=== PATIENT | female | born 1965 | race Caucasian/White ===

== ENCOUNTER 2016-11-23 09:14 | Inpatient (IN) ==
--- NOTE | 2016-11-20 22:27 | Discharge Summary ---
<Ev Bernstein - Last Filed: 11/20/16 22:22> Date of Encounter: 11/20/16 - Discharge Diagnosis (1) Status post total knee replacement, right Priority: Primary Status: Acute (2) Arthritis of knee, right Priority: Primary Status: Acute (3) HTN (hypertension) Priority: Secondary Status: Acute Qualifiers: Hypertension type: essential hypertension Qualified Code(s): I10 - Essential (primary) hypertension (4) Tobacco use Priority: Secondary Status: Chronic - Discharge Medications Prescriptions: Cyclobenzaprine [Flexeril] 10 mg PO TID #30 tab Gabapentin [Neurontin] 600 mg PO TID #30 Home Medications: Amlodipine Besylate 10 mg PO DAILY 10/07/16 [History] Carvedilol 12.5 mg PO BID 10/07/16 [History] Cyclobenzaprine [Flexeril] 10 mg PO HS 10/07/16 [History] Ezetimibe [Zetia] 10 mg PO DAILY 10/07/16 [History] Fenofibrate [Tricor] 54 mg PO DAILY 10/07/16 [History] Lisinopril [Zestril] 40 mg PO DAILY 10/07/16 [History] Vit C/E/Zn/Coppr/Lutein/Zeaxan [Preservision Areds 2 Softgel] 1 cap PO DAILY 10/17 [History] Aspirin Enteric Coated [Aspirin EC] 325 mg PO DAILY #21 tablet. 11/20/16 [Rx] OxyCODONE Immed Rel [Roxicodone 5 MG] 5 - 10 mg PO Q6HR PRN #40 tablet 11/20/16 [Rx] Venlafaxine HCl [Venlafaxine HCl ER] 37.5 mg PO DAILY 11/23/16 [History] Cyclobenzaprine [Flexeril] 10 mg PO TID #30 tab 11/25/16 [Rx] Gabapentin [Neurontin] 600 mg PO TID #30 11/25/16 [Rx] Allergies/Adverse Reactions: 3 Allergy/AdvReac Type Severity Reaction Status Date / Time acetaminophen [From [place]] AdvReac Dizziness Verified 11/23/16 09:39 cephalexin [From Keflex] AdvReac Itching Verified 11/18/16 08:34 ciprofloxacin [From Cipro] AdvReac Itching Verified 11/18/16 08:34 hydrocodone [From [place]] AdvReac Nausea Verified 11/18/16 08:34 Hydromorphone [From Dilaudid] AdvReac Itching Verified 11/18/16 08:34 morphine AdvReac Redness of Verified 11/18/16 08:34 Skin pregabalin [From Lyrica] AdvReac See Verified 11/23/16 09:39 Comments sulfamethoxazole AdvReac See Verified 11/23/16 09:39 [From Bactrim] Comments trimethoprim [From Bactrim] AdvReac See Verified 11/23/16 09:39 Comments Primary care physician: Eliseo Puente CNP - Patient Status Disposition: Home, Self-Care Condition: Good - Discharge Instructions Follow Up With: Eliseo Puente CNP [Primary Care Provider] - - Hospital Course Hospital course: Ms. You is a 51 year old female - Time Spent with Patient Total time spent providing and/or coordinating discharge services: <Jose Izaguirre - Last Filed: 11/25/16 06:24> Date of Encounter: 11/25/16 Time of Encounter: 06:20 - Discharge Diagnosis (1) Status post total knee replacement, right Priority: Primary Status: Acute (2) Arthritis of knee, right Priority: Primary Status: Chronic (3) HTN (hypertension) Priority: Secondary Status: Chronic Qualifiers: Hypertension type: essential hypertension Qualified Code(s): I10 - Essential (primary) hypertension (4) Tobacco use Priority: Secondary Status: Chronic (5) Acute blood loss anemia Priority: Primary Status: Acute Primary care physician: Eliseo Puente CNP - Patient Status Functional capacity at discharge: uses cane/walker Overall status at discharge: patient is progressing back to baseline - Hospital Course Hospital course: Ms. You is a 51 year old female Status post right total knee replacement. Patient with acute blood loss anemia postoperative hematocrit 25 transfused 2 units before discharge. The patient had an uneventful postoperative course. They received antibiotics and physical therapy and were discharged in stable condition. There will follow -up in the office in 2 weeks. - Time Spent with Patient Total time spent providing and/or coordinating discharge services:
[2016-11-23] MEDS ORDERED: Albuterol 2.5 MG/3 ML NEBULIZER IH ONE ×2 (09:35→11:05)
[2016-11-23] MEDS ORDERED: CeFAZolin Pre 2,000 MG/100 ML 2,000 MG/100 ML BAG IVPB ONE (09:35)
[2016-11-23] MEDS ORDERED: Lidocaine -MPF 1% 2 ML VIAL ID ONE (09:35)
--- NOTE | 2016-11-23 09:40 | Anesthesia Evaluation PreOp ---
Date of Encounter: 11/23/16 Time of Encounter: 09:38 - Past History Planned Operation: Right total knee arthroplasty Cardiac History: HTN Pulmonary History: Smoker QUANTITATIVE EQUITY HEAD History: Other (chronic back pain; spinal stenosis - some right lateral foot numbness that persists) Other Medical History: Diabetes Type II (gestational diabetes) Anesthesia History: No Prior Anesthetic Complications Alcohol Use: none Drug use: none Medications and Allergies Amlodipine Besylate 10 mg PO DAILY 10/07/16 [History] Carvedilol 12.5 mg PO BID 10/07/16 [History] Cyclobenzaprine [Flexeril] 10 mg PO HS 10/07/16 [History] Ezetimibe [Zetia] 10 mg PO DAILY 10/07/16 [History] Fenofibrate [Tricor] 54 mg PO DAILY 10/07/16 [History] Lisinopril [Zestril] 40 mg PO DAILY 10/07/16 [History] Vit C/E/Zn/Coppr/Lutein/Zeaxan [Preservision Areds 2 Softgel] 1 cap PO DAILY 10/17 [History] Aspirin Enteric Coated [Aspirin EC] 325 mg PO DAILY #21 tablet. 11/20/16 [Rx] OxyCODONE Immed Rel [Roxicodone 5 MG] 5 - 10 mg PO Q6HR PRN #40 tablet 11/20/16 [Rx] Gabapentin [Neurontin] 300 mg PO BID 11/23/16 [History] 3 Allergy/AdvReac Type Severity Reaction Status Date / Time acetaminophen [From [facility]] AdvReac Dizziness Verified 11/23/16 09:39 cephalexin [From Keflex] AdvReac Itching Verified 11/18/16 08:34 ciprofloxacin [From Cipro] AdvReac Itching Verified 11/18/16 08:34 hydrocodone [From [facility]] AdvReac Nausea Verified 11/18/16 08:34 Hydromorphone [From Dilaudid] AdvReac Itching Verified 11/18/16 08:34 morphine AdvReac Redness of Verified 11/18/16 08:34 Skin pregabalin [From Lyrica] AdvReac See Verified 11/23/16 09:39 Comments sulfamethoxazole AdvReac See Verified 11/23/16 09:39 [From Bactrim] Comments trimethoprim [From Bactrim] AdvReac See Verified 11/23/16 09:39 Comments - Meds/Allergy Pre-op Review Medications Reviewed: Yes Allergies Reviewed: Yes Beta Blockers on Current Med List: Yes (coreg) Anesthesia Results - Labs Laboratory Tests 11/18/16 11/18/16 11/18/16 08:46 08:46 08:46 WBC 4.5 Hgb 13.2 Hct 40.5 Plt Count 248 PT 10.4 INR 1.0 APTT 31.6 Sodium 137 Potassium 4.0 Chloride 104 Carbon Dioxide 27 BUN 17 Creatinine 0.80 Est GFR ( Amer) > 60 Est GFR (Non-Af Amer) > 60 BUN/Creatinine Ratio 21 - Imaging EKG: report reviewed, image reviewed (SINUS RHYTHM INCOMPLETE RIGHT BUNDLE BRANCH BLOCK) Anesthesia Exam Last Vital Signs Temp 98.1 F 11/23/16 09:36 Pulse 74 11/23/16 09:36 Resp 18 11/23/16 09:36 BP 136/81 11/23/16 09:36 Pulse Ox 96 11/23/16 09:36 - HEENT Pupil (Motor): Pupils equal, EOMI Mallampati: II Teeth: Missing Denture Type: Upper: Complete Oral Opening: Greater than 3 - QUANTITATIVE EQUITY HEAD LOC: Oriented - Cardiac Rhythm: Regular Murmur: None - Pulmonary Breath Sounds: bilateral Clear Respiratory Effort: Symmetrical Anesthesia Assess/Plan ASA Score: 3 Modified Pete Scale for Level of Consciousness: Cooperative, oriented, and tranquil Anesthetic Plan: General, Regional Monitoring Plan: Standard Monitors Recovery Plan: PACU
[2016-11-23] MEDS ORDERED: Plasma-Lyte A (PH 7.4) 1,000 ML IVC SCH ×2 (09:45→11:15)
--- NOTE | 2016-11-23 09:45 | History & Physical Report ---
Date of Encounter: 11/23/16 Time of Encounter: 09:44 24 Hour HP Update - Instructions Instructions: If the History and Physical is less than 30 days old and was completed prior to A.M. admission and or procedure and has NOT been updated on calendar day of procedure please complete this update prior to performing procedure. - Update Patient reports changes in Medical Condition: No Changes in examination, assessment, or condition: No Changes in Medication: No Preop tests/diagnostics Reviewed: Yes Surgery Remains Indicated: Yes Consent for Planned Operative Procedure(s) Verified: Yes - Pre-Operative Checklist Preoperative Checklist Indicated: No Prophylactic Antibiotic Ordered: Yes Is VTE Prophylaxis Indicated?: Yes
[2016-11-23] MEDS ORDERED: *HR* FentaNYL (PF) 100 MCG/2 ML VIAL ONE (10:01)
[2016-11-23] MEDS ORDERED: *HR* Midazolam HCl 2 MG/2 ML VIAL ONE (10:01)
[2016-11-23] MEDS ORDERED: *HR* Succinylcholine 200 MG/10 ML VIAL IVP ONE (10:01)
[2016-11-23] MEDS ORDERED: Lidocaine -MPF 2% 2 ML VIAL ONE (10:01)
[2016-11-23] MEDS ORDERED: *HR* Propofol 200 MG/20 ML VIAL IVP ONE (10:01)
[2016-11-23] MEDS ORDERED: Bupivacaine/Clonidine Syringe 1 EACH SYRINGE ONE (10:25)
[2016-11-23] MEDS ORDERED: *HR* Meperidine 25 MG/ML SYRINGE IVP PRN (11:05)
[2016-11-23] MEDS ORDERED: Ondansetron 4 MG/2 ML VIAL IVP ONE (11:05)
[2016-11-23] MEDS ORDERED: *HR* Labetalol 20 MG/4 ML SYRINGE IVP PRN (11:05)
[2016-11-23] MEDS ORDERED: Naloxone 0.4 MG/ML INJ IVP PRN ×2 (11:05→14:35)
[2016-11-23] MEDS ORDERED: *HR* Morphine 2 MG/ML SYRINGE IVP PRN (11:05)
--- NOTE | 2016-11-23 11:10 | Anesthesia Procedures ---
Date of Encounter: 11/23/16 Time of Encounter: 11:09 Procedures: Anesthesia - Nerve Block Procedure Date: 11/23/16 Time: 11:09 Surgical Procedure: right tka Checklist: Correct Patient Identifier, Correct procedure, History checked Correct side: Right Blood Thinner: No Monitor Applied: EKG, BP, Pulse Oximetry Supplemental Oxygen via Nasal Cannula (L/min): 2 Sedation: Versed (mg): 2 Sedation: Fentanyl (mcg): 100 Indication: Post Op Analgesia (request per dr del angel for post op pain control) Pre-op Neuro Deficits: No Block Type: Femoral, Other (ipack) Catheter placed: No Sterile Technique: Yes Ultrasound used: Yes Anatomy identified: Yes Visual spread of Local: Yes Neuro Stimulation: Yes Nerve Stimulator Range: 0.2 - 0.4 mA Blood on Needle Aspiration: No Smooth Injection of Local: Yes Pain with Injection of Local: No Prep: Chlorhexadine Needle: 22 x 50 mm Stimuplex, 21 x 100 mm Stimuplex Local: 0.25% Bupivicaine w/Clonidine 20 mcg/cc Volume (cc): 60 Number of Attempts: 1 Complications: None/effective block Vitals: Vital Signs/O2 Sat/Glucose, Most Current Temp Pulse Resp BP Pulse Ox 11/23/16 10:55 75 122/73 98 11/23/16 10:00 18 136/81 96 11/23/16 09:36 98.1 F 74 18 136/81 96 Comments: pt tolerated procedure well. no complications. vss.
[2016-11-23] MEDS ORDERED: EPHEDrine 50 MG/ML VIAL ONE (11:44)
[2016-11-23] MEDS ORDERED: Ondansetron 4 MG/2 ML VIAL ONE (11:54)
[2016-11-23] MEDS ORDERED: Dexamethasone 4 MG/ML VIAL ONE (11:54)
[2016-11-23] MEDS ORDERED: *HR* HYDROmorphone 2 MG/ML SYRINGE ONE (11:55)
--- NOTE | 2016-11-23 12:13 | Orthopedic Operative Note ---
Date of procedure: 11/23/16 Pre-op diagnosis: Right knee arthritis Post-op diagnosis: same Procedure: Procedure: Right Total knee replacement Estimated blood loss: 200 cc Hardware: Metal and polyethylene replacement. Arthrex Femur: 6 Tibia: 5 PS insert: 11 Patella: 34 Exam Under anesthesia: Full flexion and extension no instability Procedural Notes: Grade 3 arthritic changes medial compartment and patellofemoral joint. Operative procedure: The patient was brought to the operating room and placed on the operating room table. After general anesthesia was administered the operative knee was examined. Findings were noted in the exam under anesthesia. The operative extremity was prepped and draped in sterile surgical fashion. The patient received IV antibiotics prior to skin incision. A standard midline incision was made centered over the patella. The incision was made through the skin and subcutaneous tissue. A medial parapatellar tendon approach was performed. Care was taken to preserve tissue along the medial aspect of the patella. And to protect the patella tendon. The deep MCL was released off the medial tibia. The infra patella fat pad was excised. Knee was brought into flexion. Patient noted to have grade 3 arthritic changes medial compartment and patellofemoral joint. The entry hole was made for the intramedullary femoral guide. The guide was seated in 6 degrees of valgus. Anterior cut was made followed by the distal cut. The ACL the PCL the medial and the lateral menisci were excised. The tibia was subluxed forward. The entry hole was made for the intramedullary tibial guide. Guide was seated to resect 2 mm off the more abnormal side. The knee was brought into flexion the distal femur was sized to a 6. The femoral guide was seated, the anterior cut was made followed by the posterior condylar cut, followed by the chamfer cuts. The finishing guide was seated the box cut was made and the lug holes were drilled. The tibia was sized to a 5, the tibial tray was seated and prepared with the large drill followed by the fin cutter. Trial reduction revealed full extension no varus valgus instability with the appropriate 11 PS Anali. The patella was everted and cut was made at the level of the insertion of the quadriceps and patella tendon. The patella was sized 34 the guide was seated and the lug holes are drilled. Trial reduction revealed excellent patella tracking. All trial components were removed all bony surfaces were irrigated. The tibia was cemented first followed by the femur. The 11 PS Anali was seated and the knee was brought into full extension. The patella was cemented and held in place with the patellar holding clamp. After the cement had hardened, the knee sat for 2 minutes with a Betadine saline solution. The knee was then irrigated out with 2 L of pulse irrigation. The knee was closed by the PA. The extensor mechanism was closed with #2 FiberWire suture and #2 PDS suture. The subcutaneous tissue was then irrigated and closed deep with #1 PDS suture superficially with 0 PDS suture and skin was closed with skin kali. The patient was then placed in a sterile dressing and a postoperative brace extubated and transferred to recovery room in stable condition. Anesthesia: [place] Surgeon: Jose Izaguirre Barrel Header: Ev Bernstein Condition: stable Disposition: PACU
[2016-11-23] MEDS ORDERED: *HR* HYDROmorphone (PF) 1 MG/ML SYRINGE ONE ×2 (13:04→13:37)
[2016-11-23] MEDS: *HR* HYDROmorphone (PF) 1 MG/ML SYRINGE IVP PRN ×8 (13:05→14:00)
[2016-11-23] MEDS ORDERED: Acetaminophen IV 1,000 MG/100 ML INFUS..BTL IVPB ONE (13:07)
[2016-11-23] MEDS ORDERED: Ketorolac 30 MG/ML VIAL IVP ONE (13:08)
[2016-11-23] MEDS ORDERED: Ringers Solution, Lactated 1,000 ML ONE (13:20)
[2016-11-23 13:36] LABS: Hematocrit 36.7 % (35.3-44.9); Hemoglobin 12.2 g/dL (11.5-15.4)
--- NOTE | 2016-11-23 14:09 | Anesthesia Evaluation Post Op ---
Date of Encounter: 11/23/16 Time of Encounter: 14:09 - Vital Signs Vital Signs: vss - Lungs Lungs: Clear Ascult./Percussion - Airway Airway: Non-obstructed - Cardiovascular Baseline Rhythm - Mental Status Mental Status: Alert & Oriented, Answers Appropriately - Pain Pain Scale used: Cho-Leonila (Faces) (tolerable at this time.) - Nausea Vomiting Nausea Vomiting: Not Present - Hydration Hydration: Tolerates oral liquids - Discharge PostOp Status: Transfer Patient to floor
[2016-11-23] MEDS ORDERED: MOM Conc 10 ML UD.LIQ PO PRN (14:35)
[2016-11-23] MEDS ORDERED: Ondansetron 4 MG/2 ML VIAL IVP PRN (14:35)
[2016-11-23] MEDS ORDERED: Temazepam 15 MG CAPSULE PO PRN (14:35)
[2016-11-23] MEDS ORDERED: *HR* OxyCODONE Immed Rel 5 MG TABLET PO PRN (14:35)
[2016-11-23] MEDS ORDERED: Sennosides 8.6 MG TABLET PO PRN (14:35)
[2016-11-23] MEDS ORDERED: *HR* Enoxaparin 30 MG/0.3 ML SYRINGE SQ SCH (18:00)
[2016-11-23] MEDS: Ringers Solution, Lactated 1,000 ML IVC SCH (18:05)
[2016-11-23] MEDS: *HR* Enoxaparin 30 MG/0.3 ML SYRINGE SQ SCH (18:06)
[2016-11-23] MEDS: Clindamycin 900 MG/50 ML 900 MG/50 ML IV.SOLN IVPB SCH (18:06)
[2016-11-23] MEDS: Fenofibrate 54 MG TABLET PO SCH (21:25)
[2016-11-23] MEDS: Gabapentin 300 MG CAPSULE PO SCH (21:26)
[2016-11-23] MEDS: *HR* OxyCODONE Immed Rel 5 MG TABLET PO PRN (21:26)
[2016-11-24] MEDS: Clindamycin 900 MG/50 ML 900 MG/50 ML IV.SOLN IVPB SCH (00:17)
[2016-11-24] MEDS: *HR* Enoxaparin 30 MG/0.3 ML SYRINGE SQ SCH ×2 (05:20→16:54)
[2016-11-24] MEDS: *HR* OxyCODONE Immed Rel 5 MG TABLET PO PRN ×4 (05:27→21:06)
[2016-11-24] MEDS: Ringers Solution, Lactated 1,000 ML IVC SCH (05:29)
[2016-11-24 06:15] LABS: BUN/Creatinine Ratio 18 (6-26); Blood Urea Nitrogen 15 mg/dL (7-20); Calcium 8.4 mg/dL (8.6-10.8); Carbon Dioxide 27 mEq/L (19-29); Chloride 105 mEq/L (98-109); Glucose 137 mg/dL (70-99); Osmolality,Calculated 287 (280-300); Potassium 4.2 mEq/L (3.5-4.5); Sodium 137 mEq/L (136-145); eGFR For African Americans > 60 (> 60); eGFR For Non-African Americans > 60 (> 60)
[2016-11-24 06:18] LABS: Hemoglobin 9.2 g/dL (11.5-15.4)
--- NOTE | 2016-11-24 06:53 | Orthopedics Progress Note ---
Date of Encounter: 11/24/16 Time of Encounter: 06:53 - Assessment and Plan (1) Status post total knee replacement, right Current Visit: Yes Status: Acute (2) Arthritis of knee, right Current Visit: Yes Status: Chronic (3) HTN (hypertension) Current Visit: Yes Status: Chronic Qualifiers: Hypertension type: essential hypertension Qualified Code(s): I10 - Essential (primary) hypertension (4) Tobacco use Current Visit: Yes Status: Chronic (5) Acute blood loss anemia Current Visit: Yes Status: Acute Subjective Interval history: Patient was seen this morning doing well without complaints. Afebrile vital signs stable. Operative extremity: Neurovascularly intact Dressing bloody, changed today. Calves nontender Assessment and plan: Continue with postoperative care hemoglobin 9.2 asymptomatic Objective Vital signs: Vital Signs Temp Pulse Resp BP Pulse Ox 11/24/16 00:47 97.6 F 68 17 100/62 95 11/23/16 21:57 96.9 F L 80 18 99/61 96 11/23/16 17:30 97.8 F 79 16 101/63 96 11/23/16 16:30 97.6 F 71 15 102/65 96 11/23/16 16:00 73 14 94/59 96 11/23/16 14:59 96.8 F L 73 14 100/65 95 11/23/16 14:36 77 16 97/62 94 11/23/16 14:19 75 16 111/71 98 11/23/16 14:09 97.7 F 77 16 118/68 98 11/23/16 13:59 80 16 112/71 98 11/23/16 13:49 79 16 111/53 97 11/23/16 13:39 97.6 F 84 16 110/76 98 11/23/16 13:29 81 16 113/73 94 11/23/16 13:19 84 16 124/75 96 11/23/16 13:09 97.5 F L 93 16 143/97 98 11/23/16 12:59 96 16 126/83 98 11/23/16 12:49 103 16 126/67 100 11/23/16 12:39 97.2 F L 80 16 129/72 100 11/23/16 11:18 75 122/77 98 11/23/16 10:55 75 122/73 98 11/23/16 10:00 18 136/81 96 11/23/16 09:36 98.1 F 74 18 136/81 96 Intake and Output 11/23/16 11/23/16 11/24/16 15:59 23:59 07:59 Intake Total 1100 / 1100 50 / 50 1000 / 1000 Output Total 450 / 450 150 / 150 Balance 650 / 650 -100 / -100 1000 / 1000 Intake: IV Fluids 1100 / 1100 50 / 50 1000 / 1000 Plasma-Lyte A (PH 7.4) 1, 1000 / 1000 000 ML @ 75 mls/hr IVC . [id number] [facility] Rx#: [id number] Lactated Ringers 1,000 ML 1000 / 1000 @ 75 mls/hr IVC .[id number] [facility] Rx#:[id number] Ofirmev 1,000 mg/100 ml 1 100 / 100 ,000 mg In 100 ml @ 400 mls/hr IVPB ONCE ONE Rx#: [id number] Cleocin Premix 900 MG/50 50 / 50 ML 900 mg In 50 ml @ 50 mls/hr IVPB Q8HR [facility] Rx#: [id number] Output: Urine 250 / 250 150 / 150 Estimated Blood Loss 200 / 200 Other: Weight 97.069 kg Blood Glucose* 138 - Labs CBC & BMP: 11/24/16 05:05 11/24/16 05:05 Labs: Abnormal lab results Hgb 9.2 g/dL (11.5-15.4) L D 11/24/16 05:05 Hct 27.0 % (35.3-44.9) L 11/24/16 05:05 Glucose 137 mg/dL (70-99) H 11/24/16 05:05 POC Glucose 138 (58-89) H 11/23/16 15:35 Calcium 8.4 mg/dL (8.6-10.8) L 11/24/16 05:05 - VTE Documentation of Mechanical Device: Venous foot pump, device Consult Discharge Plan - Plan Referrals: Eliseo Puente CNP [Primary Care Provider] -
[2016-11-24] MEDS: Venlafaxine XR (24 HR) 37.5 MG CAP.ER.24H PO SCH (07:46)
[2016-11-24] MEDS: Lisinopril 20 MG TABLET PO SCH (07:47)
[2016-11-24] MEDS: Gabapentin 300 MG CAPSULE PO SCH ×2 (07:47→19:47)
[2016-11-24] MEDS: amLODIPine 5 MG TABLET PO SCH (07:47)
[2016-11-24] MEDS: Multivit/Ca/Min/Fe/FA 1 TAB TABLET PO SCH (07:47)
[2016-11-24] MEDS: (Ezetimibe [Zetia] 10 MG) PO SCH (07:48)
[2016-11-24] MEDS: Acetaminophen 325 MG TABLET PO PRN ×2 (08:12→19:48)
[2016-11-24] MEDS ORDERED: Fenofibrate 54 MG TABLET PO SCH (09:00)
--- NOTE | 2016-11-24 12:24 | Event Note ---
Date of Encounter: 11/25/16 Time of Encounter: 12:24 PCR - Right TKR - POD#1 Discharged* D/C plan:. Appt moved to [facility] due to transportation issues.
--- NOTE | 2016-11-24 12:27 | Physician Discharge Referral ---
Home Health/Hosp Referral Info Transfer to: Home Health Provider in Charge Post Discharge: PCP - Diagnosis (1) Status post total knee replacement, right Priority: Primary Status: Acute (2) Arthritis of knee, right Priority: Primary Status: Chronic (3) HTN (hypertension) Priority: Secondary Status: Chronic (4) Tobacco use Priority: Secondary Status: Chronic - Respiratory Orders Smoking Cessation: Smoking cessation has been advised. For more information, call the [place] Tobacco Quit Line at 3-132-LMHT-NOW. - Diet/Nutrition Diet/Nutrition Orders: Regular - Activity Activity Orders: Up ad [place], Ambulate, Walker - Services Needed Following services are medically necessary services: Nursing, Home Health Aide, Physical Therapy, Occupational Therapy Other Treatments: Opsite dressing, leave intact until first post-operative visit. If dressing becomes >50% saturated, contact office, remove dressing and place appropriate dressing in its place. Do not allow for dressing to get wet. [place] in place, plan to remove at post-operative day #14-16. Total Joint Precautions x 6 weeks Apply cold therapy wrap 3-6x/day for 20 minutes at a time. Encourage ambulation throughout the day Use Incentive spirometer 10x/hour. Elevate affected extremity above heart as tolerated. Brace: Wear knee immobilizer at night x 2 weeks. - Transfer Medications Home Medications: Amlodipine Besylate 10 mg PO DAILY 10/07/16 [History] Carvedilol 12.5 mg PO BID 10/07/16 [History] Cyclobenzaprine [Flexeril] 10 mg PO HS 10/07/16 [History] Ezetimibe [Zetia] 10 mg PO DAILY 10/07/16 [History] Fenofibrate [Tricor] 54 mg PO DAILY 10/07/16 [History] Lisinopril [Zestril] 40 mg PO DAILY 10/07/16 [History] Vit C/E/Zn/Coppr/Lutein/Zeaxan [Preservision Areds 2 Softgel] 1 cap PO DAILY 10/17 [History] Aspirin Enteric Coated [Aspirin EC] 325 mg PO DAILY #21 tablet. 11/20/16 [Rx] OxyCODONE Immed Rel [Roxicodone 5 MG] 5 - 10 mg PO Q6HR PRN #40 tablet 11/20/16 [Rx] Gabapentin [Neurontin] 300 mg PO BID 11/23/16 [History] Venlafaxine HCl [Venlafaxine HCl ER] 37.5 mg PO DAILY 11/23/16 [History] Allergies/Adverse Reactions: 3 Allergy/AdvReac Type Severity Reaction Status Date / Time acetaminophen [From [place]] AdvReac Dizziness Verified 11/23/16 09:39 cephalexin [From Keflex] AdvReac Itching Verified 11/18/16 08:34 ciprofloxacin [From Cipro] AdvReac Itching Verified 11/18/16 08:34 hydrocodone [From [place]] AdvReac Nausea Verified 11/18/16 08:34 Hydromorphone [From Dilaudid] AdvReac Itching Verified 11/18/16 08:34 morphine AdvReac Redness of Verified 11/18/16 08:34 Skin pregabalin [From Lyrica] AdvReac See Verified 11/23/16 09:39 Comments sulfamethoxazole AdvReac See Verified 11/23/16 09:39 [From Bactrim] Comments trimethoprim [From Bactrim] AdvReac See Verified 11/23/16 09:39 Comments Certification: Further, I certify that my clinical findings support that this patient is homebound (i.e. absences from home require considerable and taxing effort and are for medical reasons or adventist services or infrequently or short duration when for other reasons) because: Homebound Reason: Post-surgery restriction and or conditions limit ability to leave home Attestation: My signature below is to certify that this patient is under my care and that I, or nurse practitioner, or a physician's social research assistant working with me, has a face-to -face encounter with this patient.
[2016-11-24] MEDS: *HR* Morphine 2 MG/ML SYRINGE IVP PRN ×2 (14:30→16:49)
[2016-11-24] MEDS: Fenofibrate 54 MG TABLET PO SCH (19:47)
[2016-11-25] MEDS: *HR* Morphine 2 MG/ML SYRINGE IVP PRN (00:27)
[2016-11-25] MEDS: *HR* OxyCODONE Immed Rel 5 MG TABLET PO PRN ×4 (01:55→13:46)
[2016-11-25 05:44] LABS: Hematocrit 25.9 % (35.3-44.9); Hemoglobin 8.7 g/dL (11.5-15.4)
[2016-11-25] MEDS: *HR* Enoxaparin 30 MG/0.3 ML SYRINGE SQ SCH ×2 (05:52→16:47)
[2016-11-25 05:56] LABS: BUN/Creatinine Ratio 18 (6-26); Blood Urea Nitrogen 14 mg/dL (7-20); Calcium 8.5 mg/dL (8.6-10.8); Carbon Dioxide 29 mEq/L (19-29); Chloride 101 mEq/L (98-109); Glucose 99 mg/dL (70-99); Osmolality,Calculated 283 (280-300); Sodium 136 mEq/L (136-145); eGFR For African Americans > 60 (> 60); eGFR For Non-African Americans > 60 (> 60)
[2016-11-25] MEDS ORDERED: Ketorolac 30 MG/ML VIAL IVP ONE (06:20)
[2016-11-25] MEDS ORDERED: Furosemide 20 MG/2 ML VIAL IVP SCH (06:25)
--- NOTE | 2016-11-25 06:25 | Orthopedics Progress Note ---
Date of Encounter: 11/25/16 Time of Encounter: 06:24 - Assessment and Plan (1) Status post total knee replacement, right Current Visit: Yes Status: Acute (2) Arthritis of knee, right Current Visit: Yes Status: Chronic (3) HTN (hypertension) Current Visit: Yes Status: Chronic Qualifiers: Hypertension type: essential hypertension Qualified Code(s): I10 - Essential (primary) hypertension (4) Tobacco use Current Visit: Yes Status: Chronic (5) Acute blood loss anemia Current Visit: Yes Status: Acute Subjective Interval history: Patient was seen this morning doing complains of pain, this is different than the nurses report she acts. States that she walks the halls very well. Afebrile vital signs stable. Operative extremity: Neurovascularly intact Dressing bloody, changed today. Calves nontender Assessment and plan: Continue with postoperative care hematocrit 25 transfuse 2 units plan for discharge today Objective Vital signs: Vital Signs Temp Pulse Resp BP Pulse Ox 11/25/16 04:07 98.5 F 73 18 123/77 93 11/24/16 23:39 98.8 F 84 16 120/77 92 11/24/16 19:30 98 F 75 14 138/77 96 11/24/16 15:10 98.9 F 76 20 111/73 96 11/24/16 11:05 98.2 F 66 18 136/87 98 11/24/16 08:14 97.6 F 69 18 114/71 95 Intake and Output 11/24/16 11/24/16 11/25/16 15:59 23:59 07:59 Intake Total 620 / 620 700 / 700 1200 / 1200 Output Total 300 / 300 Balance 620 / 620 400 / 400 1200 / 1200 Intake: Oral 620 / 620 700 / 700 1200 / 1200 Output: Urine 300 / 300 Other: Meal Lunch Percent of Meal Consumed 95% # Voids 1 1 Weight 104.44 kg Patient Weight 11/25/16 23:59 Weight 104.44 kg - Labs CBC & BMP: 11/25/16 05:21 11/25/16 05:21 Labs: Abnormal lab results Hgb 8.7 g/dL (11.5-15.4) L 11/25/16 05:21 Hct 25.9 % (35.3-44.9) L 11/25/16 05:21 POC Glucose 138 (58-89) H 11/23/16 15:35 Calcium 8.5 mg/dL (8.6-10.8) L 11/25/16 05:21 - VTE Documentation of Mechanical Device: Venous foot pump, device Consult Discharge Plan - Plan Referrals: Eliseo Puente CNP [Primary Care Provider] - Prescriptions: Cyclobenzaprine [Flexeril] 10 mg PO TID #30 tab Gabapentin [Neurontin] 600 mg PO TID #30
[2016-11-25] MEDS: Gabapentin 300 MG CAPSULE PO SCH ×2 (09:11→13:46)
[2016-11-25] MEDS: Lisinopril 20 MG TABLET PO SCH (09:11)
[2016-11-25] MEDS: Venlafaxine XR (24 HR) 37.5 MG CAP.ER.24H PO SCH (09:11)
[2016-11-25] MEDS: amLODIPine 5 MG TABLET PO SCH (09:11)
[2016-11-25] MEDS: Multivit/Ca/Min/Fe/FA 1 TAB TABLET PO SCH (09:11)
[2016-11-25] MEDS: (Ezetimibe [Zetia] 10 MG) PO SCH (09:12)
[2016-11-25] MEDS ORDERED: 0.9 % Sodium Chloride 250 ML ONE ×2 (09:37→13:39)
[2016-11-25 16:44] VITALS: BP 132/71
[2016-11-25 17:54] LABS: Hematocrit 31.8 % (35.3-44.9)
[2016-11-25 17:56] LABS: Hemoglobin 10.5 g/dL (11.5-15.4)
== END 2016-11-25 18:50 | disposition home or self-care (01) | DRG 302 ==
LOC: SAMDAY 09:14 → 3NENU 14:24
PROVIDERS: ADMIT Orthopaedic Surgery; ATTEND Orthopaedic Surgery